=== PATIENT | female | born 1930 | race Caucasian/White ===

== ENCOUNTER 2016-10-09 16:29 | Inpatient (IN) ==
[2016-10-09] MEDS ORDERED: *HR* OxyCODONE/APAP 5/325 TABLET PO PRN (18:51)
--- NOTE | 2016-10-09 21:32 | Internal Med History&Physical ---
Date of Encounter: 10/09/16 Time of Encounter: 21:00 Assessment and Plan (1) Lymphedema of left lower extremity Current visit: No Status: Acute She has been advised against compression stocking but simply keep the leg elevated and undergo XRT of the pelvic mass which is probably responsible for the lymphedema. The oncologists are aware she is not on OAC. Negative Doppler study at [facility] in the past. (2) Azotemia Current visit: Yes Status: Acute Creatinine was 1.51 with estimated GFR 33 on 09/17/2016. We will continue to monitor renal indices. (3) Anemia Current visit: Yes Status: Acute Anemia workup 04/29/2015 showed no factor deficiency. We will monitor CBC as needed Qualifiers: Anemia type: unspecified type Qualified Code(s): D64.9 - Anemia, unspecified (4) Signet ring cell adenocarcinoma Current visit: Yes Status: Acute As per oncologist. Internal Medicine - H&P: HPI Chief complaint: Leg swelling Admitted From: Home Plans for Post Hospital Care: Home History of present illness: Ms. Larson is a 85 year old female states she was hospitalized at [facility]. October 02- for chemotherapy for lymphoma. When she returned home from [facility] earlier today her home physical therapist noted she had significant swelling in her left leg. It was felt she would be unable to care for herself at home adequately. She came to [facility] for admission to swing bed for rehabilitation therapy and improvement prior to returning to independent living. 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 Tumor was encasing the left ureter and was felt to be surgically unresectable. She has been seen by oncologists at [facility] as well as [facility]. She had a diverting loop colostomy done 09/28/2016. She has been diagnosed with anemia and she had a colonoscopy 2014 which showed diverticulosis and benign polyp which was removed. Past Med Surg Social Fam HX - Past Medical History Medical history: cancer, hyperlipidemia, hypertension Psychiatric history: no psych history - Past Surgical History Surgical History: cataract, cholecystectomy, hysterectomy - Social History Smoking Status: Never smoker Smokeless Tobacco Status: No Alcohol use: none Drug use: none Internal Medicine - H&P: Meds Aspirin 1 tab PO DAILY 03/26/15 [History] Atorvastatin 1 tab PO DAILY 03/26/15 [History] B Complex 1 tab PO DAILY 03/26/15 [History] Centrum Silver Tablet 1 tab PO DAILY 03/26/15 [History] Ferrous Sulfate 1 tab PO DAILY 03/26/15 [History] Fiber Gummies 2 tab PO BID 03/26/15 [History] Ginkgo Biloba 1 tab PO DAILY 03/26/15 [History] Glucosamine Chondroitin Cap 1 cap PO BID 03/26/15 [History] Metoprolol 1 tab PO BID 03/26/15 [History] Nitroglycerin 1 tab SL Q5-10MIN PRN 03/26/15 [History] Prochlorperazine Maleate [Compazine] 10 mg PO Q6HR PRN #30 tablet 04/18/15 [Rx] Ranitidine HCl [Zantac] 150 mg PO Q12H #60 tablet 05/16/15 [Rx] Magnesium Oxide [Magnesium] 400 mg PO BID #60 tablet 06/14/15 [Rx] Lisinopril [Zestril] 2.5 mg PO DAILY 11/22/15 [History] Ondansetron ODT [Zofran ODT] 4 mg SL Q4HR #60 tab.rapdis 04/22/16 [Rx] Handicap Placard 1 each .ROUTE AD #1 each 06/16/16 [Rx] Cefuroxime PO [Ceftin] 500 mg PO Q12HR #20 tablet 08/19/16 [Rx] Docusate Sodium [Colace] 100 mg PO BID #60 capsule 08/25/16 [Rx] Capecitabine [Xeloda] 1 tab PO BID #60 tablet 10/06/16 [Rx] Docusate Sodium [Colace] 100 mg PO BID #60 capsule 10/06/16 [Rx] OxyCODONE/APAP 5/325 [Percocet 5/325 MG] 1 each PO TID PRN #40 tablet 10/06/16 [ Rx] Walker W Wheels [WHEELED WALKER] 1 each .ROUTE DAILY #1 each 10/06/16 [Rx] Allopurinol [Zyloprim 300 MG] 300 mg PO DAILY #20 tablet 10/08/16 [Rx] Allergies estrogens, conjugated [From Premarin] Allergy (Verified 03/26/15 13:23) Swelling of Lip/Tongue/Throat All Systems PM: A 10-system review of systems was performed and is negative for pertinent findings except as documented above in the HPI. Review of systems: General: She states her weight has fluctuated based on fluid retention. Cardiovascular: She has history of hypertension. She has known ascending aortic aneurysm reportedly stable in size with August 2015 CT angiogram showing measurements 4.1 x 4.5 cm. She has aortic insufficiency. She denies heart failure. Echocardiogram done 09/02/2015 showed LVEF of 60-65%. She denies DVT or pulmonary embolus. Respiratory: She smoked from age [age] up to 4 cigarettes per day. She denies known chronic lung disease. GI: She has had cholecystectomy. She denies disorders of her liver or exocrine pancreas : She denies hematuria dysuria or kidney stones. Her left ureter has infiltrated adenocarcinoma from the colon. Neurologic: She denies large distribution strokes or seizures. Endocrine: She denies diabetes thyroid disease or hyperlipidemia Hematology/oncology: Per history of present illness Psychiatric: She denies anxiety depression or other mental health issues [place] skeletal: She has DJD but no known gout or osteoporosis - Constitutional Vitals: Temp Pulse Resp BP Pulse Ox 97.5 F L 85 16 89/53 97 10/09/16 19:29 10/09/16 19:29 10/09/16 19:29 10/09/16 19:29 10/09/16 19:29 Exam: Gen.: She is a well-developed lean female lying in bed who appears in no severe distress at present time HEENT: Head is atraumatic and normocephalic. Eyes: EOMI. There is no scleral icterus. Mouth: Mucosa is moist Neck: Supple and nontender. There is no thyromegaly or adenopathy noted. Heart: Regular without murmurs gallops or ectopics Lungs: No wheezes or crackles are heard. Abdomen: She has an ostomy bag in the left lower abdominal area with stool collected. No masses or guarding are noted. Extremities: Left leg shows 2-3+ edema of the foot and lower leg. The right leg shows no edema. She has DJD changes of her hands. Neurologic: Mental status: She is able to answer most questions. She is lethargic. Cranial nerves: Smile is symmetric. Forehead wrinkles bilaterally. Tongue protrudes midline. EOMI. Motor: There is no pronator drift. Cerebellar: Finger to nose is intact bilaterally. Skin: Warm and dry
[2016-10-09] MEDS: XELODA 500 MG PO SCH (22:48)
[2016-10-10] MEDS: Ondansetron ODT 4 MG TAB.RAPDIS SL SCH (00:09)
[2016-10-10] MEDS ORDERED: Ondansetron ODT 4 MG TAB.RAPDIS SL PRN (01:39)
[2016-10-10] MEDS: Cefuroxime PO 250 MG TABLET PO SCH (12:35)
[2016-10-10] MEDS: Multivit/Ca/Min/Fe/FA 1 TAB TABLET PO SCH (12:36)
[2016-10-10] MEDS: GLUCOSAMINE CHONDROITIN PO SCH ×2 (12:37→22:33)
[2016-10-10] MEDS: XELODA 500 MG PO SCH ×2 (12:37→22:33)
[2016-10-10 13:59] LABS: Basophils # 0.1 K/mcL (0.0-0.2); Basophils % 0.4 %; Eosinophils # 0.1 K/mcL (0.0-0.6); Eosinophils % 0.7 %; Hematocrit 30.9 % (35.3-44.9); Hemoglobin 9.9 g/dL (11.5-15.4); Immature Granulocytes % 0.7 % (0-4); Lymphocytes # 0.4 K/mcL (0.6-4.6); Lymphocytes % 2.4 %; Mean Corpuscular Hemoglobin 31.4 pg (28.0-33.3); Mean Corpuscular Volume 98.1 fL (83.0-100.0); Mean Platelet Volume 10.9 fL (9.4-12.4); Monocytes % 6.2 %; Neutrophils # 14.1 K/mcL (1.6-8.9); Platelet Count 214 K/mcL (140-400); Red Blood Count 3.15 M/mcL (3.82-4.97); Red Cell Distribution Width 18.2 % (11.5-14.5); Segmented Neutrophils % 89.6 %
[2016-10-10 14:15] LABS: Calcium 12.9 mg/dL (8.6-10.8); Potassium 3.7 mEq/L (3.5-4.5)
[2016-10-10] MEDS: *HR* HYDROcodone/Acet 5/325 mg TABLET PO PRN (15:29)
--- NOTE | 2016-10-10 18:20 | Internal Med Progress Note ---
Date of Encounter: 10/10/16 Time of Encounter: 18:05 - Assessment and plan (1) Lymphedema of left lower extremity Current Visit: No Status: Acute Assessment and plan: October 10. The sons confirmed that [facility] chose not to use compression stockings but continue elevation (2) Azotemia Current Visit: Yes Status: Acute Assessment and plan: October 10. Creatinine has worsened since last labs. Will give IV fluids. (3) Anemia Current Visit: Yes Status: Acute Assessment and plan: October 10. Hemoglobin today was 9.9. We will order anemia testing. Qualifiers: Anemia type: unspecified type Qualified Code(s): D64.9 - Anemia, unspecified (4) Signet ring cell adenocarcinoma Current Visit: Yes Status: Acute Assessment and plan: October 10. As per oncologist. (5) Neutrophilic leukocytosis Current Visit: Yes Status: Acute Assessment and plan: October 10. She has been started on empiric antibiotics. Chest x-ray and urine culture have been ordered. (6) Atrial fibrillation Current Visit: Yes Status: Acute Assessment and plan: October 10. Actual duration unknown. We will give therapeutic dose Lovenox tonight and recheck labs in a.m. Qualifiers: Atrial fibrillation type: unspecified Qualified Code(s): I48.91 - Unspecified atrial fibrillation - Subjective Interval history: October 10. She has no new complaints. Her 2 sons are in the room and reports she was hospitalized for 2 weeks at [facility] ending October 02. She was unable to care for self adequately at home even with the sons staying with her. - Constitutional Vitals: Temp Pulse Resp BP Pulse Ox 97.4 F L 73 18 85/58 97 10/10/16 10:18 10/10/16 10:58 10/10/16 10:18 10/10/16 11:31 10/10/16 10:58 Exam: She is resting comfortably in bed and is appropriate in conversation. Her affect is bright and cheerful. Her leg edema is minimally changed from yesterday. I reviewed her medications and lab results. Reviewed her EKG noting she has atrial fibrillation Internal Medicine: Result - Labs CBC & Chem 7: 10/10/16 13:35 10/10/16 13:35 Labs: Short CBC 10/10/16 Range/Units 13:35 WBC 15.7 H (4.3-11.1) K/mcL Hgb 9.9 L (11.5-15.4) g/dL Hct 30.9 L (35.3-44.9) % Plt Count 214 (140-400) K/mcL Neutrophils # 14.1 H (1.6-8.9) K/mcL BMP 10/10/16 13:35 Sodium 138 Potassium 3.7 Chloride 101 Carbon Dioxide 24 BUN 36 H Creatinine 2.50 H Glucose 120 H Calcium 12.9 H Consult Discharge Plan - Plan Referrals: Shubham Mackenzie MD [Primary Care Provider] - 1 week
[2016-10-10] MEDS: 0.9 % Sodium Chloride 1,000 ML IVC SCH (22:31)
[2016-10-10] MEDS ORDERED: *HR* Enoxaparin 100 MG/ML SYRINGE SQ SCH (23:30)
[2016-10-11] MEDS: Cefuroxime PO 250 MG TABLET PO SCH ×3 (00:43→20:44)
[2016-10-11] MEDS: *HR* HYDROcodone/Acet 5/325 mg TABLET PO PRN ×3 (00:50→16:12)
[2016-10-11 06:06] LABS: Basophils # 0.1 K/mcL (0.0-0.2); Basophils % 0.5 %; Eosinophils # 0.2 K/mcL (0.0-0.6); Eosinophils % 2.1 %; Hematocrit 27.5 % (35.3-44.9); Hemoglobin 8.9 g/dL (11.5-15.4); Immature Granulocytes % 0.9 % (0-4); Lymphocytes # 0.3 K/mcL (0.6-4.6); Mean Corpuscular HGB Conc 32.4 g/dL (31.6-35.5); Mean Corpuscular Hemoglobin 31.7 pg (28.0-33.3); Mean Corpuscular Volume 97.9 fL (83.0-100.0); Mean Platelet Volume 11.3 fL (9.4-12.4); Monocytes # 0.8 K/mcL (0.0-1.3); Monocytes % 7.4 %; Neutrophils # 9.7 K/mcL (1.6-8.9); Platelet Count 186 K/mcL (140-400); Red Blood Count 2.81 M/mcL (3.82-4.97); Segmented Neutrophils % 86.1 %
[2016-10-11 06:23] LABS: Albumin/Globulin Ratio 1.2 (1.1-2.2); Bilirubin,Total 0.6 mg/dL (0.2-1.2); Calcium 12.2 mg/dL (8.6-10.8); Globulin 1.7 g/dL (2.4-3.5); Potassium 3.8 mEq/L (3.5-4.5); Total Protein 3.7 g/dL (6.0-8.3)
[2016-10-11] MEDS: Multivit/Ca/Min/Fe/FA 1 TAB TABLET PO SCH (09:00)
[2016-10-11] MEDS: 0.9 % Sodium Chloride 1,000 ML IVC SCH ×3 (09:04→20:42)
[2016-10-11] MEDS: GLUCOSAMINE CHONDROITIN PO SCH ×2 (09:06→20:45)
[2016-10-11] MEDS: XELODA 500 MG PO SCH ×2 (09:06→20:46)
--- NOTE | 2016-10-11 11:24 | Internal Med Progress Note ---
Date of Encounter: 10/11/16 Time of Encounter: 11:10 - Assessment and plan (1) Lymphedema of left lower extremity Current Visit: No Status: Acute Assessment and plan: October 10. The sons confirmed that [facility] chose not to use compression stockings but continue elevation (2) Azotemia Current Visit: Yes Status: Acute Assessment and plan: October 10. Creatinine has worsened since last labs. Will give IV fluids. October 11. Unchanged. Nursing reports no urine output has occurred since start of IV fluids. We will do bladder scan. Recheck labs in a.m. (3) Anemia Current Visit: Yes Status: Acute Assessment and plan: October 10. Hemoglobin today was 9.9. We will order anemia testing. October 11. Anemia testing is pending Qualifiers: Anemia type: unspecified type Qualified Code(s): D64.9 - Anemia, unspecified (4) Signet ring cell adenocarcinoma Current Visit: Yes Status: Acute Assessment and plan: October 10. As per oncologist. (5) Neutrophilic leukocytosis Current Visit: Yes Status: Acute Assessment and plan: October 10. She has been started on empiric antibiotics. Chest x-ray and urine culture have been ordered. October 11. Chest x-ray was unremarkable. Urine has not been collected. Continue Ceftin (6) Atrial fibrillation Current Visit: Yes Status: Acute Assessment and plan: October 10. Actual duration unknown. We will give therapeutic dose Lovenox tonight and recheck labs in a.m. October 11. Continue Lovenox Qualifiers: Atrial fibrillation type: unspecified Qualified Code(s): I48.91 - Unspecified atrial fibrillation (7) Hypercalcemia Current Visit: Yes Status: Acute Assessment and plan: Suspect due to combination of chronic kidney disease with malignancy. We will check PTH. Will give zoledronic acid. - Subjective Interval history: October 10. She has no new complaints. Her 2 sons are in the room and reports she was hospitalized for 2 weeks at [facility] ending October 02. She was unable to care for self adequately at home even with the sons staying with her. October 11. She has no new complaints and feels better. - Constitutional Vitals: Temp Pulse Resp BP Pulse Ox 97.7 F 94 17 80/47 92 L 10/11/16 07:15 10/11/16 07:15 03/12/17 07:15 10/11/16 07:15 10/11/16 07:15 Exam: She is resting comfortably in bed. She is appropriate in conversation. I reviewed her medications and lab results. Internal Medicine: Result - Labs CBC & Chem 7: 10/11/16 05:25 10/11/16 05:25 Labs: Short CBC 10/10/16 10/11/16 Range/Units 13:35 05:25 WBC 15.7 H 11.3 H (4.3-11.1) K/mcL Hgb 9.9 L 8.9 L (11.5-15.4) g/dL Hct 30.9 L 27.5 L (35.3-44.9) % Plt Count 214 186 (140-400) K/mcL Neutrophils # 14.1 H 9.7 H (1.6-8.9) K/mcL BMP 10/10/16 10/11/16 13:35 05:25 Sodium 138 137 Potassium 3.7 3.8 Chloride 101 104 Carbon Dioxide 24 24 BUN 36 H 37 H Creatinine 2.50 H 2.51 H Glucose 120 H 91 Calcium 12.9 H 12.2 H Liver Function 10/11/16 Range/Units 05:25 Total Bilirubin 0.6 (0.2-1.2) mg/dL AST 13 (5-34) Units/L ALT 6 (0-55) Units/L Alkaline Phosphatase 94 (38-126) Units/L Albumin 2.0 L (3.5-5.0) g/dL - Impressions Impressions Chest X-Ray 10/10/16 18:15 IMPRESSION: No acute pulmonary finding. Prominence of the ascending aorta may be due to tortuosity or possible aneurysm. D/ / Bowen Galeano MD / Bowen Galeano MD Interpreting Provider: Bowen Galeano MD Consult Discharge Plan - Plan Referrals: Shubham Mackenzie MD [Primary Care Provider] - 1 week
[2016-10-11] MEDS ORDERED: Zoledronic Acid (Zometa) 4 MG in 0.9 % Sodium Chloride 100 ML IV ONE (11:30)
[2016-10-11 17:30] LABS: Bilirubin,Urine Negative (Negative); Blood,Urine Negative (Negative); Clarity,Urine Clear (Clear); Color,Urine Yellow (Yellow); Glucose,Urine (UA) Normal (Normal); Ketones,Urine Negative (Negative); Leukocyte Esterase,Urine Negative (Negative); Nitrite,Urine Negative (Negative); Protein,Urine Negative (Neg-Trace); Specific Gravity,Urine 1.025 (1.010-1.025); Urobilinogen,Urine Normal (Normal)
[2016-10-11] MEDS ORDERED: *HR* Enoxaparin 100 MG/ML SYRINGE SQ SCH (18:00)
[2016-10-11 18:17] LABS: Folate 14.2 ng/mL (7.0-31.4)
[2016-10-12 05:21] LABS: Basophils # 0.1 K/mcL (0.0-0.2); Basophils % 0.5 %; Eosinophils # 0.3 K/mcL (0.0-0.6); Eosinophils % 2.3 %; Hematocrit 29.8 % (35.3-44.9); Hemoglobin 9.7 g/dL (11.5-15.4); Immature Granulocytes % 0.6 % (0-4); Lymphocytes # 0.3 K/mcL (0.6-4.6); Lymphocytes % 2.2 %; Mean Corpuscular HGB Conc 32.6 g/dL (31.6-35.5); Mean Corpuscular Hemoglobin 31.8 pg (28.0-33.3); Mean Corpuscular Volume 97.7 fL (83.0-100.0); Mean Platelet Volume 10.8 fL (9.4-12.4); Monocytes # 0.7 K/mcL (0.0-1.3); Monocytes % 5.4 %; Neutrophils # 11.1 K/mcL (1.6-8.9); Platelet Count 205 K/mcL (140-400); Red Blood Count 3.05 M/mcL (3.82-4.97)
[2016-10-12] MEDS: *HR* HYDROcodone/Acet 5/325 mg TABLET PO PRN ×4 (05:23→22:01)
[2016-10-12] MEDS: 0.9 % Sodium Chloride 1,000 ML IVC SCH ×2 (05:30→16:25)
[2016-10-12 05:37] LABS: Calcium 11.7 mg/dL (8.6-10.8); Magnesium 1.6 mg/dL (1.6-2.6); Potassium 3.8 mEq/L (3.5-4.5)
[2016-10-12] MEDS: Cefuroxime PO 250 MG TABLET PO SCH (09:43)
[2016-10-12] MEDS: Multivit/Ca/Min/Fe/FA 1 TAB TABLET PO SCH (09:43)
--- NOTE | 2016-10-12 10:09 | Internal Med Progress Note ---
Date of Encounter: 10/12/16 Time of Encounter: 09:55 - Assessment and plan (1) Lymphedema of left lower extremity Current Visit: No Status: Acute Assessment and plan: October 10. The sons confirmed that [facility] chose not to use compression stockings but continue elevation (2) Azotemia Current Visit: Yes Status: Acute Assessment and plan: October 10. Creatinine has worsened since last labs. Will give IV fluids. October 11. Unchanged. Nursing reports no urine output has occurred since start of IV fluids. We will do bladder scan. Recheck labs in a.m. October 12. She had urinary retention so Mo catheter was inserted. She is having adequate urine output. There was minimal change in azotemia. Suspect significant dysfunction of left kidney due to ureter obstruction from encasement by signet cell adenocarcinoma from the colon. (3) Anemia Current Visit: Yes Status: Acute Assessment and plan: October 10. Hemoglobin today was 9.9. We will order anemia testing. October 11. Anemia testing is pending October 12. Anemia testing showed low serum iron and IBC but significantly elevated ferritin. Continue to monitor. Qualifiers: Anemia type: unspecified type Qualified Code(s): D64.9 - Anemia, unspecified (4) Signet ring cell adenocarcinoma Current Visit: Yes Status: Acute Assessment and plan: October 10. As per oncologist. (5) Neutrophilic leukocytosis Current Visit: Yes Status: Acute Assessment and plan: October 10. She has been started on empiric antibiotics. Chest x-ray and urine culture have been ordered. October 11. Chest x-ray was unremarkable. Urine has not been collected. Continue Ceftin October 12. UA was unremarkable. I reviewed her abdominal CT report from 2016 which warts gas collection in the pelvis possibly due to necrosis or concomitant abscess. I will order repeat CT scan. (6) Atrial fibrillation Current Visit: Yes Status: Acute Assessment and plan: October 10. Actual duration unknown. We will give therapeutic dose Lovenox tonight and recheck labs in a.m. October 11. Continue Lovenox Qualifiers: Atrial fibrillation type: unspecified Qualified Code(s): I48.91 - Unspecified atrial fibrillation (7) Hypercalcemia Current Visit: Yes Status: Acute Assessment and plan: October 11. Suspect due to combination of chronic kidney disease with malignancy. We will check PTH. Will give zoledronic acid. October 12. Improving. Continue IV fluids and monitor labs - Subjective Interval history: October 10. She has no new complaints. Her 2 sons are in the room and reports she was hospitalized for 2 weeks at [email or web address] ending October 02. She was unable to care for self adequately at home even with the sons staying with her. October 11. She has no new complaints and feels better. October 12. She has no new complaints and feels better - Constitutional Vitals: Temp Pulse Resp BP Pulse Ox 98.6 F 81 16 82/48 98 10/12/16 07:06 10/12/16 08:04 10/12/16 07:06 10/12/16 07:06 10/12/16 08:04 Exam: She is resting comfortably in bed. Her affect is bright and cheerful. Heart is irregularly irregular. Lungs are clear anteriorly. I reviewed her medications and lab results. Internal Medicine: Result - Labs CBC & Chem 7: 10/12/16 04:43 10/12/16 04:43 Labs: Short CBC 10/12/16 Range/Units 04:43 WBC 12.5 H (4.3-11.1) K/mcL Hgb 9.7 L (11.5-15.4) g/dL Hct 29.8 L (35.3-44.9) % Plt Count 205 (140-400) K/mcL Neutrophils # 11.1 H (1.6-8.9) K/mcL BMP 10/11/16 10/12/16 05:25 04:43 Sodium 137 138 Potassium 3.8 3.8 Chloride 104 105 Carbon Dioxide 24 24 BUN 37 H 36 H Creatinine 2.51 H 2.45 H Glucose 91 81 Calcium 12.2 H 11.7 H Liver Function 10/11/16 Range/Units 05:25 Total Bilirubin 0.6 (0.2-1.2) mg/dL AST 13 (5-34) Units/L ALT 6 (0-55) Units/L Alkaline Phosphatase 94 (38-126) Units/L Albumin 2.0 L (3.5-5.0) g/dL Urine 10/11/16 Range/Units 16:49 Urine Color Yellow (Yellow) Urine Clarity Clear (Clear) Urine pH 5.0 (5.0-8.0) pH Units Ur Specific [place] 1.025 (1.010-1.025) Urine Protein Negative (Neg-Trace) mg/dL Urine Glucose (UA) Normal (Normal) mg/dL Consult Discharge Plan - Plan Referrals: Shubham Mackenzie MD [Primary Care Provider] - 1 week
[2016-10-12] MEDS: GLUCOSAMINE CHONDROITIN PO SCH ×2 (11:47→21:49)
[2016-10-12] MEDS: XELODA 500 MG PO SCH ×2 (11:47→21:49)
--- NOTE | 2016-10-12 15:21 | Electrocardiograph Report ---
[place] [id number] Test Date: 2016-10-10 Pat Name: Maria Eugenia Larson Department: [id number] Room: [facility] Gender: F [employer]: : 1930 Requested By: Shubham Mackenzie Order Number: [id number] Reading MD: Franki Peters Measurements Intervals [place] Rate: 103 P: [place]: 0 QRS: -60 QRSD: 114 T: 89 QT: 350 QTc: 410 Interpretive Statements ATRIAL FIBRILLATION WITH RAPID VENTRICULAR RESPONSE LOW QRS VOLTAGE IN PRECORDIAL LEADS LEFT ANTERIOR FASCICULAR BLOCK Electronically Signed On 10-12-2016 15:20:16 EDT by Franki Peters
[2016-10-12] MEDS ORDERED: *HR* Enoxaparin 100 MG/ML SYRINGE SQ SCH (18:00)
[2016-10-12] MEDS ORDERED: *HR* Morphine 2 MG/ML SYRINGE IVP PRN (19:31)
[2016-10-12] MEDS ORDERED: Clotrimazole 1% CRM 15 GM TUBE TP SCH (21:00)
[2016-10-13] MEDS: MetroNIDAZOLE 500 MG/100 ML 500 MG/100 ML BAG IVPB SCH ×2 (00:12→10:00)
[2016-10-13] MEDS: 0.9 % Sodium Chloride 1,000 ML IVC SCH ×2 (03:36→10:20)
[2016-10-13 03:46] LABS: Basophils # 0.1 K/mcL (0.0-0.2); Basophils % 0.6 %; Eosinophils # 0.3 K/mcL (0.0-0.6); Hematocrit 27.4 % (35.3-44.9); Immature Granulocytes % 0.6 % (0-4); Lymphocytes # 0.2 K/mcL (0.6-4.6); Lymphocytes % 1.7 %; Mean Corpuscular HGB Conc 32.8 g/dL (31.6-35.5); Mean Corpuscular Hemoglobin 31.9 pg (28.0-33.3); Mean Corpuscular Volume 97.2 fL (83.0-100.0); Mean Platelet Volume 10.5 fL (9.4-12.4); Monocytes # 0.6 K/mcL (0.0-1.3); Monocytes % 4.8 %; Neutrophils # 11.8 K/mcL (1.6-8.9); Platelet Count 210 K/mcL (140-400); Red Blood Count 2.82 M/mcL (3.82-4.97); Segmented Neutrophils % 90.3 %
[2016-10-13] MEDS: *HR* HYDROcodone/Acet 5/325 mg TABLET PO PRN (06:19)
[2016-10-13] MEDS ORDERED: 0.9 % Sodium Chloride 1,000 ML IVC SCH (07:45)
[2016-10-13 09:58] VITALS: BP 91/51
[2016-10-13] MEDS: Cefuroxime PO 250 MG TABLET PO SCH (10:03)
[2016-10-13] MEDS: Multivit/Ca/Min/Fe/FA 1 TAB TABLET PO SCH (10:04)
--- NOTE | 2016-10-13 10:14 | Discharge Summary ---
Date of Encounter: 10/13/16 Time of Encounter: 09:40 - Discharge Diagnosis (1) Lymphedema of left lower extremity Priority: Primary Status: Acute (2) Azotemia Priority: Secondary Status: Acute (3) Anemia Priority: Secondary Status: Acute Qualifiers: Anemia type: unspecified type Qualified Code(s): D64.9 - Anemia, unspecified (4) Signet ring cell adenocarcinoma Priority: Secondary Status: Acute (5) Neutrophilic leukocytosis Priority: Secondary Status: Acute (6) Atrial fibrillation Priority: Secondary Status: Acute Qualifiers: Atrial fibrillation type: unspecified Qualified Code(s): I48.91 - Unspecified atrial fibrillation (7) Hypercalcemia Priority: Secondary Status: Acute - Discharge Medications Home Medications: Aspirin 1 tab PO DAILY 03/26/15 [History] Atorvastatin 1 tab PO DAILY 03/26/15 [History] B Complex 1 tab PO DAILY 03/26/15 [History] Centrum Silver Tablet 1 tab PO DAILY 03/26/15 [History] Ferrous Sulfate 1 tab PO DAILY 03/26/15 [History] Fiber Gummies 2 tab PO BID 03/26/15 [History] Ginkgo Biloba 1 tab PO DAILY 03/26/15 [History] Glucosamine Chondroitin Cap 1 cap PO BID 03/26/15 [History] Nitroglycerin 1 tab SL Q5-10MIN PRN 03/26/15 [History] Prochlorperazine Maleate [Compazine] 10 mg PO Q6HR PRN #30 tablet 04/18/15 [Rx] Ranitidine HCl [Zantac] 150 mg PO Q12H #60 tablet 05/16/15 [Rx] Magnesium Oxide [Magnesium] 400 mg PO BID #60 tablet 06/14/15 [Rx] Ondansetron ODT [Zofran ODT] 4 mg SL Q4HR #60 tab.rapdis 04/22/16 [Rx] Handicap Placard 1 each .ROUTE AD #1 each 06/16/16 [Rx] Docusate Sodium [Colace] 100 mg PO BID #60 capsule 08/25/16 [Rx] Capecitabine [Xeloda] 1 tab PO BID #60 tablet 10/06/16 [Rx] Docusate Sodium [Colace] 100 mg PO BID #60 capsule 10/06/16 [Rx] OxyCODONE/APAP 5/325 [Percocet 5/325 MG] 1 each PO TID PRN #40 tablet 10/06/16 [ Rx] Walker W Wheels [WHEELED WALKER] 1 each .ROUTE DAILY #1 each 10/06/16 [Rx] Allopurinol [Zyloprim 300 MG] 300 mg PO DAILY #20 tablet 10/08/16 [Rx] Clotrimazole 1% CRM [Lotrimin 1%] 1 appl TP BID tube 10/13/16 [Rx] Multivit/Ca/Min/Fe/FA [Thera M Plus] 1 tab PO DAILY tablet 10/13/16 [Rx] Allergies/Adverse Reactions: Allergies estrogens, conjugated [From Premarin] Allergy (Verified 03/26/15 13:23) Swelling of Lip/Tongue/Throat Procedures/tests Complete & Pending: Procedures Performed prior 72 hours Category Date Time Status CT abd pelvis wo no iv no oral [CT] Stat Cat Scan 10/12/16 11:02 Completed ECG 12 lead ECG [ECG] Routine Y 10/10/16 13:17 Completed Date of admission: 10/09/16 18:06 Consults: 10/09/16 18:18 Consult to Occupational Therapy [CONS] Routine Comment: evaluate,develop, and implement plan of care Consult to Physical Therapy [CONS] Routine Comment: evaluate,develop, and implement plan of care Consult to Early Childhood Education Worker [CONS] Routine Reason for SW Consult: Discharge planning - Patient Status Disposition: Home, Self-Care Functional capacity at discharge: bed bound - Discharge Instructions - Diet and Activity Diet: advance to your usual diet Hospital course: Ms. Larson is a 85 year old female who states she was hospitalized at [facility]. 2 weeks ago for chemotherapy for lymphoma. When she returned home from [facility] last week her home physical therapist noted she had significant swelling in her left leg. She was unable to care for herself at home adequately even with family assistance. She came to [facility] for admission to swing bed for rehabilitation therapy and improvement prior to returning to independent living. I saw her on October 09 and performed the swing bed history and physical. Her orders from [facility] were generally continued. She had physical therapy and occupational therapy evaluations with ongoing intervention. Her lymphedema did not change significantly during her hospital stay. Her sons confirmed that [facility] chose not to use compression stockings but only use elevation. Her azotemia showed minimal improvement during her hospital stay. She had evidence of urinary retention with approximately 500 mL urine in the bladder so Mo catheter was inserted. Her BUN/creatinine were 36 and 2.5 respectively on 10/12/2016. Anemia testing showed low serum iron and IBC but significantly elevated ferritin. B 12 and folate levels were normal. A repeat abdominal / pelvis CT was done to follow-up on a September CT which showed gas collection in the pelvis possibly due to necrosis or concomitant abscess. The repeat scan showed 2 areas of gas collection within a mass or lymph node conglomerate. I spoke with her [facility] surgical oncologist who felt no further surgical intervention could be offered. It was agreed to start the patient on IV antibiotics since the patient and family wanted an aggressive course to be pursued. There was no significant change in her mild leukocytosis or left shift despite antibiotics. She did develop episodes of hypotension with systolic blood pressure approximately 70. She was given fluid boluses with improvement in the blood pressure. I had a conversation with Dr. Suárez at [facility] radiation oncology and he felt palliative radiation could still be offered if the patient and family were agreeable. On October 13 it was felt the patient was not appropriate for swing bed services since family wanted a more aggressive course pursued. Hospice services were offered but declined. After several discussions between personnel at [facility] and [facility] it was agreed the patient would go for a radiation oncology visit with Dr. Suárez today and then be referred to [facility] emergency room for possible acute care admission there. - Time Spent with Patient Total time spent providing and/or coordinating discharge services: - Constitutional Vitals: Temp Pulse Resp BP Pulse Ox 98.2 F 101 12 91/51 94 L 10/13/16 07:20 10/13/16 09:58 10/13/16 07:20 10/13/16 09:58 10/13/16 09:58
[2016-10-13] MEDS: GLUCOSAMINE CHONDROITIN PO SCH (10:24)
[2016-10-13] MEDS: XELODA 500 MG PO SCH (10:24)
== END 2016-10-13 11:50 | disposition other institution (70) ==
LOC: INPPIK 18:06
PROVIDERS: ADMIT Internal Medicine; ATTEND Internal Medicine